=== PATIENT | female | born 1960 | race Caucasian/White ===

== ENCOUNTER 2019-07-12 09:16 | Observation (INO) | payer MEDICAID, SELFPAY ==
[2019-07-11 09:45] VITALS: BMI 34.8
[2019-07-11 10:10] LABS: Add Urine Microscopic? NO
[2019-07-11 10:16] LABS: Basophils % 0.6 %; Eosinophils # 0.1 10^3/uL (0.0-0.8); Hematocrit 39.2 % (37.0-47.0); Hemoglobin 13.2 g/dL (11.5-15.3); Lymphocytes % 28.4 %; Mean Corpuscular HGB Conc 33.7 g/dL (30.0-36.0); Mean Corpuscular Hemoglobin 30.6 pg (28.0-34.0); Mean Platelet Volume 10.7 fL (7.4-10.4); Monocytes # 0.5 10^3/uL (0.2-0.9); Monocytes % 7.3 %; Neutrophils # 4.4 10^3/uL (1.8-7.7); Neutrophils % 61.4 %; Nucleated Red Blood Cells % 0 %; Platelet Count 247 10^3/cmm (130-400); Red Blood Count 4.31 10^6/uL (4.1-5.3); Red Cell Distribution Width 12.4 % (12.1-15.1); White Blood Count 7.1 10^3/uL (4.0-10.0)
[2019-07-11 10:33] LABS: Bilirubin Urine Neg (NEGATIVE); Blood Urine Neg (Negative); Glucose Urine UA Norm (Normal); Ketones Urine Negative (Negative); Leukocyte Esterase Urine Negative (Negative); Nitrate Urine Negative (Negative); Protein Urine Neg (Negative); Specific Gravity, Urine 1.015 (1.005-1.030); Urine Appearance Clear (CLEAR); Urine Color Yellow (Yellow); Urobilinogen Urine Norm (Negative)
[2019-07-11 10:37] LABS: Alanine Aminotransferase 7 U/L (0-33); Albumin Level 4.1 g/dL (3.5-5.2); Alkaline Phosphatase 123 IU/L (35-105); Anion Gap 13.3 (5-19); Aspartate Amino Transferase 13 U/L (0-32); Blood Urea Nitrogen 10 mg/dL (8-23); Calcium 9.4 mg/Dl (8.8-10.2); Carbon Dioxide 29 mmol/L (22-29); Chloride 97 mmol/L (98-107); Globulin 2.8 g/dL (1.3-4.6); Glomerular Filtration Rate 73.2 mL/min (90-130); Glucose 129 mg/dL (74-106); Potassium 4.3 mmol/L (3.5-5.1); Sodium 135 mmol/L (136-145); Total Bilirubin 0.2 mg/dL (0.15-1.2); Total Protein 6.9 g/dL (6.6-8.7)
[2019-07-12] VITALS (14 sets, daily range): BP systolic 112–148; BP diastolic 67–95; PULSE 56–89; RESP 14–18; TEMP 36.3–36.7; O2SAT 93–100; BMI 34.8
[2019-07-12] MEDS: sodium chloride 0.9% 1,000 ML 30 ML IV (06:24)
--- NOTE | 2019-07-12 06:50 | ANES.PREANES ---
Pre-Anesthetic Assessment Pre-Anesthetic Assessment: Height/Weight: Height 1.68 m Weight 97.976 kg Temp Pulse Resp BP Pulse Ox 97.3 F L 65 18 140/89 98 07/12/19 06:18 07/12/19 06:18 07/12/19 06:18 07/12/19 06:18 07/12/19 06:18 Proposed Procedure: Operation Date: 07/12/19 07:05 Proposed Procedures p Anterior Repair Anterior Colporrhaphy w/ Sacrospinous Ligament Suspension(Not Applicable) - Derrell Oleary MD Familial anesthetic complications: PONV Was Beta Jorge taken within 24 hours: Yes Last intake: Intake Last Liquid Date 07/11/19 Last Liquid Time 21:00 Last Solid Date 07/11/19 Last Solid Time 21:00 Social: Social History: Tobacco and No alcohol Packs per day: 0.5 ppd Exam: Pre-Anes Outpt Exam: alert, oriented x 3, clear to auscultation bilaterally and regular rate & rhythm Airway: Submandibular: WNL Cervical ROM: WNL Dentition: Full Pulmonary: Pulmonary: None reported CV/HEM: CV/HEM: Afib and HTN Comments: Mitral valve d/o : : None reported Hepatic: Hepatic: None reported GI: GI: GERD Metabolic: Metabolic: Morbid obesity Musc/skel: Musc/skel: Lower Back Pain Comments: back surgery 1.5 years ago - still painful Neuropsych: Neuropsych: None reported Anesthetic Plan: ASA status: III Anesthesia: General Risk of > 500 ml blood loss (7ml/kg in children): No Meds/Allergies Current Medications: Current Medications Generic Name Dose Route Start Last Admin Trade Name Freq PRN Reason Stop Dose Admin Sodium Chloride 1,000 mls @ 30 ml s/hr 07/12/19 05:45 07/12/19 06:24 Sodium Chloride 0.9% IV 07/13/19 05:44 30 mls/hr .Q24H BOUCHRA Administration PFSH Anesthesia PFSH: Medical History (Updated 07/11/19 @ 09:38 by Hanane Askew RN) Cystocele with small rectocele and uterine descent (Acute) Menopausal state (Acute) Surgical History (Updated 07/10/19 @ 08:34 by Lorraine Modi RN) History of laminectomy (Acute) 11/22/2017 L3- L4, L4-L5 laminectomy/fusion/fixation performed by Dr. Horton History of tubal ligation (Acute) 1985 History of vaginal hysterectomy (Acute) 03/25/2017 with bladder sling performed by Dr. Oleary Hx of tonsillectomy (Acute) Family History (Updated 06/09/19 @ 14:04 by JANIS Atkins) Mother Thyroid disorder Father Thyroid disorder Grandfather Cancer Colon Social History Smoking and tobacco status: current every day smoker cigarettes Packs smoked per day: 0.5 Years cigarettes smoked: 8 Alcohol intake: never Lives independently: Yes Household members: significant other Marital status: Single Number of children: 3 History of recent travel: No Female Reproductive History: Para: 3 Spontaneous abortions: Yes (2) Data Anesthesia Labs: Other Labs: Laboratory Results - last 48 hr 07/11/19 07/11/19 07/11/19 09:50 09:50 09:50 WBC 7.1 RBC 4.31 Hgb 13.2 Hct 39.2 MCV 91.0 MCH 30.6 MCHC 33.7 RDW 12.4 Plt Count 247 MPV 10.7 H Neut % (Auto) 61.4 Lymph % (Auto) 28.4 [place] % (Auto) 7.3 Eos % (Auto) 2.0 Baso % (Auto) 0.6 Neut # (Auto) 4.4 Lymph # (Auto) 2.0 [place] # (Auto) 0.5 Eos # (Auto) 0.1 Baso # (Auto) 0.0 Nucleated RBC % (a uto) 0 Nucleated RBCs # 0.0 Sodium Potassium Chloride Carbon Dioxide Anion Gap BUN Creatinine GFR Calculation Glucose Calcium Total Bilirubin AST ALT Alkaline Phosphata se Total Protein Albumin Globulin Urine Color Yellow Urine Appearance Clear Urine pH 5.0 Ur Specific Gravit y 1.015 Urine Protein Neg Urine Glucose (UA) Norm Urine Ketones Negative Urine Occult Blood Neg Urine Nitrate Negative Urine Bilirubin Neg Urine Urobilinogen Norm Ur Leukocyte Ivonne ase Negative Blood Type O Positive Antibody Screen Negative 07/11/19 09:50 WBC RBC Hgb Hct MCV MCH MCHC RDW Plt Count MPV Neut % (Auto) Lymph % (Auto) [place] % (Auto) Eos % (Auto) Baso % (Auto) Neut # (Auto) Lymph # (Auto) [place] # (Auto) Eos # (Auto) Baso # (Auto) Nucleated RBC % (a uto) Nucleated RBCs # Sodium 135 L Potassium 4.3 Chloride 97 L Carbon Dioxide 29 Anion Gap 13.3 BUN 10 Creatinine 0.8 GFR Calculation 73.2 L Glucose 129 H Calcium 9.4 Total Bilirubin 0.2 AST 13 ALT 7 Alkaline Phosphata se 123 H Total Protein 6.9 Albumin 4.1 Globulin 2.8 Urine Color Urine Appearance Urine pH Ur Specific Gravit y Urine Protein Urine Glucose (UA) Urine Ketones Urine Occult Blood Urine Nitrate Urine Bilirubin Urine Urobilinogen Ur Leukocyte Ivonne ase Blood Type Antibody Screen Cardiac Studies: No Data to Display
[2019-07-12] MEDS: scopolamine 1.5 Patch 1 PATCH TRANSDERMA (07:22)
[2019-07-12] MEDS: metoprolol succinate ER (24 HR) 50 mg Tablet PO (07:22)
--- NOTE | 2019-07-12 07:31 | PM.HPUD ---
H&P update H&P Update: DATE OF SURGERY/PROCEDURE: 07/12/19 DATE H&P PERFORMED: 07/10/19 H&P UPDATE INFORMATION: H&P completed within last 30 days, No changes to prior documentation and [place] [facility] [place] indicated PREOP DIAGNOSIS: Vaginal prolapse PLANNED PROCEDURE: Operation Date: 07/12/19 07:05 Proposed Procedures p Anterior Repair Anterior Colporrhaphy w/ Sacrospinous Ligament Suspension(Not Applicable) - Derrell Oleary MD Full H&P Medications/Allergies: Current Medications: Current Medications Generic Name Dose Route Start Last Admin Trade Name Freq PRN Reason Stop Dose Admin Sodium Chloride 1,000 mls @ 30 ml s/hr 07/12/19 05:45 07/12/19 06:24 Sodium Chloride 0.9% IV 07/13/19 05:44 30 mls/hr .Q24H BOUCHRA Administration Perinent History: Medical/Surgical History: Medical History (Updated 07/10/19 @ 10:11 by Derrell Oleary MD) Cystocele with small rectocele and uterine descent (Acute) Menopausal state (Acute) Family History: Family History (Updated 06/09/19 @ 14:04 by JANIS Atkins) Mother Thyroid disorder Father Thyroid disorder Grandfather Cancer Colon Social History: Social History Smoking and tobacco status: current every day smoker cigarettes Packs smoked per day: 0.5 Years cigarettes smoked: 8 Alcohol intake: never Lives independently: Yes Household members: significant other Marital status: Single Number of children: 3 History of recent travel: No
[2019-07-12] MEDS: estrogens Conjugated Cream 30 gm 1 APPLIC VAGINAL (07:58)
--- NOTE | 2019-07-12 09:05 | PM.OP ---
Operative Report Post-Operative Note: Date of procedure: 07/12/19 Preop Diagnosis: Vaginal prolapse stage III Post-op Findings: Cystocele stage III Procedure Done: Anterior colporrhaphy with bilateral sacrospinous ligament suspension Specimens removed/disposition: None Estimated blood loss (mL): 50 IV fluids (mL): 300 Urine output (mL): 100 Complications: Complications none Condition: stable Disposition: PACU Operative Report: Brief History: 59-year-old female post hysterectomy with anterior colporrhaphy, carries a cystocele stage III with apex descent Procedure: Anterior colporrhaphy w Metristem After obtaining informed consent, the patient was taken to the operating room and placed in the supine position, given general anesthesia, and prepped and draped in sterile fashion. The abdomen, vulva and vagina were prepped and draped in a sterile manner. A time out procedure was performed. The vaginal mucosa was then injected in the midline with normal saline. The vaginal mucosa was scored in the midline with the Bovie approximately 1 cm medial to the urethral meatus to 1 cm distal to the vaginal cuff. This vaginal mucosa was then undermined and then incised in the midline with the Metzenbaum scissors. The lateral aspects of the vaginal mucosa were then grasped with the Allis clamps and the vaginal mucosa was then dissected off the underlying fascia with the Metzenbaum scissors. Again, there was noted to be quite a bit of oozing at the incision, which was controlled with cautery. After adequate dissection was performed, bilaterally. An allograft matrix is modified at time of application to fit spacea, 4 x 3 cm piece . The allograft placed in front of cystocele ready to be implanted with the Basement Membrane facing the vagina mucosa. Suture is placed at distal end of graft and placed towards vaginal cuff. Final suture is placed on proximal portion of the graft to complete the placement overlying the bladder. Then Interrupted vertical mattress sutures of 0 Vicryl were used to elevate the cystocele superiorly. The excessive vaginal mucosa was then trimmed with the Metzenbaum scissors and the vaginal mucosa was then reapproximated in the running interlocking fashion with 2-0 Vicryl. The posterior vaginal mucosa is opened in the routine fashion. A finger is inserted through the incision in the posterior vaginal mucosa, dissecting out the rectovaginal space (RVS). The right rectal pillar (RRP) is identified. The rectal pillar can be bluntly perforated either with the finger or with the tip of a long Maria T clamp. A retractor is used for exposing the rectovaginal space in order to enter the pararectal space with retraction of the cardinal ligament, vagina, and rectum. Displacing the rectum to the left and the cardinal ligament and ureter anteriorly. A sponge dissector is used to bluntly dissect the sacrospinous ligament removing areolar tissue. The ischial spine was palpated directly, and a area approximately 2 cm medial to the spine was selected for insertion of the Anchorsure transvaginal sacrospinous fixation system. One end of the suture of Anchoresure system inserted through the sacrospinous ligament is placed through the muscular layer of the vagina. In a similar manner, the second suture is placed. The opposite end of the suture in the sacrospinous ligament is left free and held on a small hemostat. Then traction on this suture will draw the vaginal vault directly to the ligament, where a square knot affixes it to the sacrospinous ligament. After the fang stich is tied the second safety stich is tied. Then the Tyler catheter was removed and cystoscope was inserted. The bladder was filled with sterile water. Complete evaluation of the bladder mucosa was performed noting no lacerations, dimpling, tears, bleeding of the mucosa or muscular layers. Both ureteral orifices were identified. Prompt excretion of urine from both ureteral orifices was noted. Cystoscope was withdrawn. The Tyler catheter was replaced. Excellent hemostasis was obtained. A vaginal pack is placed overnight as postoperative support for the vaginal tissues after graft placement and closure of vaginal incisions. Sponge, lap, needle, and instrument counts were correct times three. The patient was taken to the recovery room, awake and in stable condition. Coding Level of Care Code Acute Supervisor [employer] for Yaneth Estes
[2019-07-12] MEDS: fentaNYL 50 mcg/mL INJ 2mL IVP ×2 (09:21→09:26)
--- NOTE | 2019-07-12 09:38 | SUR.PHASEI ---
0913 PT TO PACU SLEEPY WITH GOOD RESP PT AWAKES TO VOICE ABD SOFT WITH RTOHMAN TO DD STATLOCK TO RT THIGH YELLOW URINE NOTED TO TUBING AND BAG 0921 PT MORE ALERT RATES ABD PAIN AT 01/11 SEE PAIN MED GIVEN 0939 PT SLEEPS IF NOT DISTURBED ON RA SATS 975 , SEE EARLIER PAIN MEDS GIVEN
[2019-07-12] MEDS: HYDROcodone-acetaminophen 5-325 mg Tablet PO ×3 (10:09→20:09)
--- NOTE | 2019-07-12 10:10 | SUR.PHASEI ---
1000 PTTO FLOOR UP PER W/C WITH VOLUNTEER, PT MOVES SELF TO BED , ABD SOFT RADHA PAD D/I ROTHMAN PATENT OF SMALL AMT YELLOW URINE. BP 140/86, HR 57, RESP 16, SATS 100% ON RA
[2019-07-12] MEDS: dextrose 5%-lactated ringers 1,000 ML 125 ML IV ×2 (10:11→18:18)
[2019-07-12] MEDS: hydroCHLOROthiazide 25 mg Tablet PO (11:47)
[2019-07-12] MEDS: ketorolac 30 mg/mL INJ IVP ×3 (11:49→21:33)
[2019-07-12] MEDS: fentaNYL 50 mcg/mL INJ 2mL IV ×2 (12:34→13:48)
--- NOTE | 2019-07-12 13:26 | PM.PACU ---
PACU note Post-Anesthesia Exam: awake and vital signs stable Disposition: back to floor
[2019-07-12] MEDS: gabapentin 300 mg Capsule 600 MG PO ×2 (15:37→21:33)
[2019-07-12] MEDS: ferrous sulfate EC 325 mg Tablet PO (17:16)
[2019-07-12] MEDS: docusate sodium 100 mg Capsule PO (17:16)
[2019-07-12] MEDS: methocarbamol 500 mg Tablet PO (17:28)
[2019-07-12] MEDS: cyclobenzaprine 10 mg Tablet PO (21:55)
[2019-07-13] MEDS: dextrose 5%-lactated ringers 1,000 ML 125 ML IV (02:25)
[2019-07-13 04:00] VITALS: BP 100/64; PULSE 69; RESP 18; TEMP 36.8; O2SAT 95
[2019-07-13] MEDS: ketorolac 30 mg/mL INJ IVP (04:26)
[2019-07-13] MEDS: HYDROcodone-acetaminophen 5-325 mg Tablet PO ×2 (04:58→09:36)
[2019-07-13] MEDS: metoprolol succinate ER (24 HR) 50 mg Tablet PO (07:57)
[2019-07-13] MEDS: ferrous sulfate EC 325 mg Tablet PO (08:01)
[2019-07-13] MEDS: pantoprazole DR 40 mg Tablet PO (08:02)
[2019-07-13] MEDS: docusate sodium 100 mg Capsule PO (08:02)
[2019-07-13] MEDS: hydroCHLOROthiazide 25 mg Tablet PO (08:02)
[2019-07-13] MEDS: gabapentin 300 mg Capsule 600 MG PO (08:02)
[2019-07-13] MEDS: multivitamin therapeutic Tablet 1 TAB PO (08:04)
[2019-07-13] MEDS: cetirizine 10 mg Tablet PO (08:06)
[2019-07-13 08:49] LABS: Basophils % 0.2 %; Hematocrit 33.4 % (37.0-47.0); Hemoglobin 11.1 g/dL (11.5-15.3); Lymphocytes # 1.1 10^3/uL (0.8-4.8); Lymphocytes % 10.4 %; Mean Corpuscular HGB Conc 33.2 g/dL (30.0-36.0); Mean Corpuscular Hemoglobin 30.5 pg (28.0-34.0); Mean Corpuscular Volume 91.8 fL (81-99); Mean Platelet Volume 11.7 fL (7.4-10.4); Monocytes # 0.4 10^3/uL (0.2-0.9); Monocytes % 3.7 %; Neutrophils # 9.1 10^3/uL (1.8-7.7); Neutrophils % 85.5 %; Nucleated Red Blood Cells % 0 %; Platelet Count 194 10^3/cmm (130-400); Red Blood Count 3.64 10^6/uL (4.1-5.3); Red Cell Distribution Width 12.4 % (12.1-15.1); White Blood Count 10.6 10^3/uL (4.0-10.0)
--- NOTE | 2019-07-13 09:29 | P.DS_ITS ---
Discharge Providers ARCHITECTURAL PRACTICE MANAGER Date of Admission: 07/12/19 09:16 Date of Discharge: 07/13/19 Attending Provider at Admission: Derrell Oleary Attending Provider at Discharge: Derrell Oleary Primary Care Provider: Derrell Oleary Diagnoses at Discharge Discharge Diagnosis (1) Pelvic organ prolapse quantification stage 3 cystocele: Status: Acute Reason for Visit Reason for Visit: Reason For Visit: Vaginal prolapse ?? Hospital Course Hospital Course: Patient was admitted for planned anterior colporrhaphy and bilateral sacrospinous ligament suspension. The procedures were performed without complications. She is ambulating without difficulty. Tolerating diet well.. She is afebrile and hemodynamically stable. Physical Exam Const: COMMON NORMALS: oriented x3, alert and well nourished GENERAL APPEARANCE: comfortable, well kempt and other (Normal Posture) Resp: COMMON NORMALS: clear to auscultation bilaterally EFFORT & INSPECTION: Yes able to speak in complete sentences AUSCULTATION: clear to auscultation bilaterally Cardio: COMMON NORMALS: regular rate, regular rhythm, S1 normal heart sound and S2 normal heart sound RATE: regular rate RHYTHM: regular rhythm HEART SOUNDS: S1 normal, S2 normal and no murmurs GI: COMMON NORMALS: soft to palpation and non-tender PALPATION: Yes soft, No rebound tenderness present and Yes other (No distention, no rigidity ) : EXTERNAL FEMALE EXAM: Yes normal appearance of the urethra SPECULUM EXAM - VAGINA: Yes vaginal lesion other (scar (Vaginal cuff healing well, no signs of infecion), No vaginal bleeding and Yes other (Vaginal wall- good support) SPECULUM EXAM - CERVIX: Yes cervix absent BIMANUAL EXAM - VAGINA & UTERUS: Yes uterus absent BIMANUAL EXAM - ADNEXA, OTHER: Yes normal adnexae OB/EXTERNAL & SPECULUM: No vaginal bleeding Neuro: COMMON NORMALS: oriented x3 SENSORIUM/ORIENTATION: Yes alert Psych: APPEARANCE: Yes well kempt Urinary Catheter Management^: F: Cath Placed During This Visit: no Discharge Data Data Completed and Pending: Laboratory Tests 07/11/19 09:50 WBC 7.1 RBC 4.31 Hgb 13.2 Hct 39.2 MCV 91.0 MCH 30.6 MCHC 33.7 RDW 12.4 Plt Count 247 MPV 10.7 H Neut % (Auto) 61.4 Lymph % (Auto) 28.4 [place] % (Auto) 7.3 Eos % (Auto) 2.0 Baso % (Auto) 0.6 Neut # (Auto) 4.4 Lymph # (Auto) 2.0 [place] # (Auto) 0.5 Eos # (Auto) 0.1 Baso # (Auto) 0.0 Nucleated RBC % (a uto) 0 Nucleated RBCs # 0.0 Labs from last 24 hours 07/13/19 08:11 WBC 10.6 H RBC 3.64 L Hgb 11.1 L Hct 33.4 L MCV 91.8 MCH 30.5 MCHC 33.2 RDW 12.4 Plt Count 194 MPV 11.7 H Neut % (Auto) 85.5 Lymph % (Auto) 10.4 [place] % (Auto) 3.7 Eos % (Auto) 0.0 Baso % (Auto) 0.2 Neut # (Auto) 9.1 H Lymph # (Auto) 1.1 [place] # (Auto) 0.4 Eos # (Auto) 0.0 Baso # (Auto) 0.0 Nucleated RBC % (a uto) 0 Nucleated RBCs # 0.0 Procedures Performed: Anterior colporrhaphy with bilateral sacrospinous ligament suspension. Vitals: Last Vital Signs Temp 98.2 F 07/13/19 04:00 Pulse 69 07/13/19 04:00 Resp 18 07/13/19 04:00 BP 100/64 07/13/19 04:00 Pulse Ox 95 07/13/19 04:00 Discharge Plan Discharge Patient Disposition: Home, Self-Care Condition: Stable Prescriptions: Continued cyclobenzaprine 10 mg tablet 10 mg PO TID PRN (Reason: Pain) RF: 0 meloxicam [Mobic] 15 mg tablet 15 mg PO ONCE RF: 0 hydrocodone-acetaminophen 10-325 mg tablet 1 tab PO Q4H PRN (Reason: pain) RF: 0 gabapentin 600 mg tablet 600 mg PO TID RF: 0 tramadol 50 mg tablet 50 mg PO Q6H PRN (Reason: Pain) RF: 0 hydrochlorothiazide 25 mg tablet 25 mg PO ONCE RF: 0 metoprolol succinate 50 mg tablet extended release 24 hr 50 mg PO DAILY RF: 0 aspirin [Adult Low Dose Aspirin] 81 mg tablet,delayed release (DR/EC) 81 mg PO ONCE RF: 0 pseudoephedrine HCl 30 mg tablet 30 mg PO ONCE PRN (Reason: Allergy Symptoms) RF: 0 MegaRed [place]-3 Krill Oil [phone] mg capsule 1 cap PO ONCE RF: 0 omeprazole 20 mg capsule,delayed release(DR/EC) 20 mg PO ONCE PRN (Reason: gerd) RF: 0 multivitamin Tablet 1 tab PO DAILY RF: 0 cetirizine [Zyrtec] 10 mg tablet 10 mg PO ONCE PRN (Reason: allergies) RF: 0 methocarbamol 500 mg tablet 500 mg PO TID PRN (Reason: Pain) RF: 0 Premarin 0.625 mg tablet 0.625 mg PO DAILY RF: 0 Discharge Orders: Discharge Order (Routine); Ordered 07/13/19 Ordered By: Derrell Oleary Discharge Diet: Regular Discharge Activity: Increase activity as tolerated Patient Instructions: Anterior Vaginal Repair (DC) Activity Restrictions/Additional Instructions: Pelvic rest for 6 weeks. Return to the emergency room if any fever, increased bleeding or pain. Discharge Attestations ARCHITECTURAL PRACTICE MANAGER Time Spent in Discharge Care*: greater than 30 min Specific Discharge Activities: Specific discharge activities: educating patient Coding Level of Care Code Acute Assessment Counselor for Yaneth Fwwaldo Diagnoses Pelvic organ prolapse quantification stage 3 cystocele N81.10
[2019-07-13] MEDS: cyclobenzaprine 10 mg Tablet PO (09:38)
[2019-07-13 10:00] VITALS: BP 137/86; PULSE 62; RESP 16; TEMP 36.5; O2SAT 100
[2019-07-13 10:37] VITALS: BP 137/86; PULSE 62; RESP 16; TEMP 36.5; O2SAT 100
== END 2019-07-13 11:10 | disposition home or self-care (01) ==
LOC: OBGYN 09:17
PROVIDERS: Admitting Provider Obstetrics & Gynecology; PCP Obstetrics & Gynecology; Visit Provider Obstetrics & Gynecology
PROC: 0JQC0ZZ Repair Pelvic Region Subcutaneous Tissue and Fascia, Open Approach (ICD-10-PCS; CPT 57240; principal; 2019-07-12 07:00)
DX: N81.10 Cystocele, unspecified (principal); Z79.82 Long term (current) use of aspirin; Z79.891 Long term (current) use of opiate analgesic; F17.210 Nicotine dependence, cigarettes, uncomplicated; E66.01 Morbid (severe) obesity due to excess calories; Z68.34 Body mass index [BMI] 34.0-34.9, adult
CPT/HCPCS: 57240; 57267; 57282; 80053; 81003; 85025; 86850; 86900; 96360; 96361; 96375; C1762; G0378; J0131; J0690; J1100; J1885; J2001; J2250; J2405; J2704; J2710; J2765; J3010; J3490; J7030

== ENCOUNTER → 2019-08-04 10:29 | Outpatient (BNVA) | payer MEDICAID, SELFPAY | PROVIDERS: PCP Family Medicine; Visit Provider Nurse Practitioner | DX: M43.16 Spondylolisthesis, lumbar region (principal); F17.210 Nicotine dependence, cigarettes, uncomplicated; Z79.891 Long term (current) use of opiate analgesic | CPT/HCPCS: 99214 ==

== ENCOUNTER 2019-09-22 08:58 | Outpatient (CLI) | payer MEDICAID, SELFPAY ==
--- NOTE | 2019-09-22 09:03 | XR_ITS ---
WS: [id number] AP pelvis, AP and frog-leg views of both hips, 09/22/2019 Clinical Data: hip pain Comparison: Right hip, 04/26/2017., Left hip, 11/13/2016. Findings: The SI joints and pubic symphysis are normal. The hips show no fracture, narrowing, sclerosis or cyst formation. The patient's had bilateral pedicle screws inserted into the L5 vertebral body. The soft tissues are normal. XR/XR hip BI m 5V wo/w pel* [id number] Impression: Negative pelvis and both hips.
--- NOTE | 2019-09-22 09:03 | IR_ITS ---
WS: [id number] Lumbar myelogram, 09/22/2019 Clinical Data: lumbar pain Comparison: Lumbar spine, 12/07/2017 Fluoroscopy time: 1.0 minutes. Findings: With the usual technique, a 22 gauge spinal needle was inserted into the lumbar subarachnoid space at L2-L3. The contrast material was hand injected. Approximately 15 mL of 240 mg/mL Omnipaque filled the lumbar subarachnoid space. The patient has had a posterior lumbar fusion of the L3, L4 and L5 vertebral bod ies with bilateral pedicle screws connected with rods. There is also a transverse band between the co nnecting rods at the L3 level. A bony fusion of the transverse processes has been performed. The 0.5 cm subluxation of L4 on L5 has not changed. No intramedullary or intradural defects are seen. There i s a slight bilateral extradural defect at L4-L5. The patient was placed in a headdown position and th e contrast material flowed normally into the lower thoracic subarachnoid space. Flexion, extension and neutral lateral views demonstrated no limitations of motion or increase in sub luxation. The posterior lumbar fusion at L3-L5 remains intact. IR/IR myelogram sp lumbar [id number] Impression: 1. Intact posterior lumbar fusion, unchanged, from L3 through L5. 2. Negative for intradural or intramedullary defect. 3. Small bilateral extradural defects at L4-L5.
--- NOTE | 2019-09-22 09:03 | CT_ITS ---
WS: [id number] CT of the lumbar spine, additional two-dimensional coronal and sagittal imaging was obtained. 09/22/19 Clinical Data: lumbar pain Comparison: CT lumbar spine, 05/10/2019. DLP: 1937.[address] scans at [facility] use at least one of these dose optimization techniques: automat ed exposure control; mA and/or kV adjustment per patient size (includes targeted exams where dose is matched to clinical indication); or iterative reconstruction. Findings: The post myelographic study shows that the pedicle screws remain in the same position as wa s noted on the earlier study. There is lucency at the tips of the L5 pedicle screws. However the luce ncies remain the same size. The pedicle screws are intact with connecting rods between the screws fro m L3 through L5. There is a transverse band connecting the rods at the L3 level. Laminectomy has been performed at L3 and L4. A bony fusion between the L3 and L5 transverse processes bilaterally at sanjay ins intact. No compression fractures are seen. There is degenerative disc disease at L4-L5. There is a 0.5 cm subluxation of L4 on L5 unchanged. Facet joint arthritis is seen at multiple levels from L2- L3 to L4-L5. No intramedullary or intradural defects are seen. T12-L1: No canal stenosis, disc bulge or foraminal narrowing is seen. L1-L2: No canal stenosis, disc bulge or foraminal narrowing is seen. L2-L3: There is a central and right paracentral disc bulge causing right foraminal stenosis. L3-L4: There is a central disc bulge causing bilateral foraminal stenosis. L4-L5: There is a central bulging disc causing bilateral foraminal stenosis. L5-S1: No canal stenosis, disc bulge or foraminal narrowing is seen. CT/CT lumbar spine w con [id number] Impression: 1. Intact posterior lumbar fusion from L3 through L5. 2. Multilevel disc bulging from L2-L3 through L4-L5. 3. No change in subluxation of 0.5 cm of L4 on L5. 4. Degenerative disc disease at L4-L5.
[2019-09-22] MEDS: iohexol 240 mg/mL 50 mL Btl INTRATHECA (10:24)
== END 2019-09-22 08:59 | disposition home or self-care (01) ==
LOC: RADWPI 09:01
PROVIDERS: PCP Family Medicine; Visit Provider Specialist
DX: Z98.1 Arthrodesis status (principal); M54.5 Low back pain; M51.26 Other intervertebral disc displacement, lumbar region; M47.896 Other spondylosis, lumbar region
CPT/HCPCS: 62304; 72120; 72132; 73523

== ENCOUNTER → 2019-09-29 11:01 | Outpatient (BNVA) | payer MEDICAID, SELFPAY | PROVIDERS: PCP Family Medicine; Visit Provider Anesthesiology | DX: M43.16 Spondylolisthesis, lumbar region (principal); F17.210 Nicotine dependence, cigarettes, uncomplicated; Z98.890 Other specified postprocedural states; Z98.1 Arthrodesis status; Z79.891 Long term (current) use of opiate analgesic; Z71.6 Tobacco abuse counseling | CPT/HCPCS: 99214 ==

== ENCOUNTER → 2020-01-17 09:38 | Outpatient (BNVA) | payer MEDICAID, SELFPAY | PROVIDERS: PCP Family Medicine; Visit Provider Nurse Practitioner | DX: M54.41 Lumbago with sciatica, right side (principal); M54.42 Lumbago with sciatica, left side; M43.16 Spondylolisthesis, lumbar region; M54.9 Dorsalgia, unspecified; F17.210 Nicotine dependence, cigarettes, uncomplicated; Z79.891 Long term (current) use of opiate analgesic; Z71.6 Tobacco abuse counseling | CPT/HCPCS: 99214 ==

== ENCOUNTER → 2020-03-15 09:39 | Outpatient (BNVA) | payer MEDICAID, SELFPAY | PROVIDERS: PCP Family Medicine; Visit Provider Nurse Practitioner | DX: M54.42 Lumbago with sciatica, left side (principal); M54.41 Lumbago with sciatica, right side; M43.16 Spondylolisthesis, lumbar region; M54.9 Dorsalgia, unspecified; F17.210 Nicotine dependence, cigarettes, uncomplicated; Z71.6 Tobacco abuse counseling; Z98.890 Other specified postprocedural states; Z79.891 Long term (current) use of opiate analgesic | CPT/HCPCS: 99214 ==

== ENCOUNTER 2020-05-05 17:02 | Emergency (ER) | payer MEDICAID, SELFPAY ==
[2020-05-05 17:10] VITALS: BP 111/79; PULSE 147; RESP 14; TEMP 36.3; O2SAT 98; BMI 34.7
[2020-05-05] MEDS: adenosine 3 mg/mL SDV 2mL 6 MG IVP (17:30)
--- NOTE | 2020-05-05 17:43 | W.ED.ARRPALP ---
HPI - Arrhythmia/Palpitations General: Chief Complaint: Arrhythmia/Palpitations Stated Complaint: HEART OUT OF RHYTHM Time Seen by Provider: 05/05/20 17:18 History of Present Illness: HPI narrative: This patient is a 60-year-old female comes in today with a rapid heart rate. She said it started while she was sleeping and was present on awakening this morning. She is been trying all day to get it to stop. She has a history of SVT and knows the various maneuvers to try at home. These have not worked. She also has metoprolol at home and she is taken 300 mg of it throughout the day to try to get it to stop. She feels a little short of breath with exertion but denies chest pain. She is not lightheaded. She comes in hoping that we can just convert her back to normal rhythm. She does not want to have a big work-up. She said she has never had positive troponins and she is never had any cardiac history other than the SVT. She sees Dr. Sinha. RODRÍGUEZ complaint: rapid heart beat Onset (ago): hour(s) Duration: constant Severity: moderate Context: occurred during rest Arrhythmia history: SVT Associated symptoms: Reports short of breath; Deny nausea or vomiting Treatments prior to arrival: vagal maneuvers and beta-aj Review of Systems General: Reports: 10 or more systems reviewed and unremarkable except in HPI and below Const: Denies: fever(s), chills, fatigue or malaise Eyes: Denies: change in vision ENMT: Denies: odynophagia Card: Denies: chest pain or swelling of feet/ankles Resp: Denies: dyspnea, productive cough or non-productive cough GI: Denies: abdominal pain, nausea or vomiting : Denies: flank pain or difficulty voiding Musc: Denies: neck pain or back pain Skin/Breast: Denies: rash Neuro: Denies: headache(s), numbness in extremities or weakness in extremities Alexis/Lymph: Denies: easy bruising or easy bleeding PFS ED PFSH: Medical History Cystocele with small rectocele and uterine descent Encounter for long-term opiate analgesic use Hypertension Menopausal state Mitral valve prolapse Opioid contract exists Smoker Spondylolisthesis, lumbar region Surgical History H/O vaginal surgery anterior colporrhaphy with bilateral sacrospinous ligament suspension- performed on 07/12/[address] Oleary History of cataract extraction 04/2019- right eye 06/2019- left eye History of laminectomy 11/22/2017 L3- L4, L4-L5 laminectomy/fusion/fixation performed by Dr. Horton History of lumbar fusion History of tubal ligation 1985 History of vaginal hysterectomy 03/25/2017 with bladder sling performed by Dr. Oleary Hx of bladder repair surgery Dr. Oleary 07/2019 Hx of tonsillectomy Family History Mother Thyroid disorder Father Thyroid disorder Grandfather Cancer Colon Social History (Updated 05/06/20 @ 09:36 by Yazmin Villasenor LPN) Smoking and tobacco status: current every day smoker cigarettes Packs smoked per day: 0.5 Alcohol intake: never Substance/Drug Use: never Lives independently: Yes Household members: significant other Marital status: Single Number of children: 3 Current occupation: disabled History of recent travel: No Female Reproductive History: Para: 3 Spontaneous abortions: Yes (2) Physical Exam Const: COMMON NORMALS: no acute distress, patient oriented x3, no limitations and alert GENERAL APPEARANCE: cooperative and comfortable HENMT: HEAD & SCALP: normal to inspection FACE & SINUS: normal facial exam Eye: GENERAL EYE: appearance normal, both eyes and all related structures Neck/C-Spine: COMMON NORMALS: supple, no meningeal signs and no JVD Chest: COMMONS NORMALS: normal inspection of the chest Resp: COMMON NORMALS: normal respiratory effort, No use of accessory muscles and clear to auscultation bilaterally AUSCULTATION: clear to auscultation bilaterally Cardio: COMMON NORMALS: no JVD, regular rhythm and No murmurs present (Cardio) RATE: tachycardic (150) RHYTHM: regular rhythm GI: COMMON NORMALS: Normal to inspection, nondistended, normoactive bowel sounds present, Soft to palpation and non-tender INSPECTION: Yes normal to inspection AUSCULTATION: Yes normoactive bowel sounds PALPATION: Yes Soft to palpation Back/Pelvis: COMMON NORMALS: thoracic and lumbar spine normal to inspection Extremity: COMMON NORMALS: normal to inspection Neuro: COMMON NORMALS: patient oriented x3, moves all extremities, no focal motor deficits and no sensory deficits noted SENSORIUM/ORIENTATION: Yes alert MENINGEAL SIGNS: Yes no meningeal signs Psych: COMMON NORMALS: mental status grossly normal, cooperative and normal affect Skin: COMMON NORMALS: no rashes or lesions noted and turgor normal GENERAL SKIN EXAM: no rashes or lesions noted and turgor normal Course ED course: Patient has had this multiple times and does not wish to have a work-up. I think that is reasonable given her symptoms. We tried adenosine which did slow her down for about 3 PVC type beats. Her heart rate then went right back to 150. Cardizem, slow push of 20 mg IV, converted her back to a sinus rhythm. She is still having some mild irregularity on the monitor. Of asked her to just rest for a while and let us make sure that she stays in a sinus rhythm. Vital Signs: Vital signs: Vital Signs Temperature 97.3 F L 05/05/20 17:10 Pulse Rate 65 05/05/20 19:26 Respiratory Rate 16 05/05/20 19:26 Blood Pressure 93/65 05/05/20 19:26 Pulse Oximetry 95 05/05/20 19:26 Discharge Plan Discharge Patient Disposition: Home Clinical Impression: SVT (supraventricular tachycardia) Condition: Stable Prescriptions: New diltiazem HCl 30 mg tablet 30 mg PO Q6H PRN (Reason: SVT) Qty: 10 RF: 0 No Action metoprolol succinate 50 mg tablet extended release 24 hr 50 mg PO DAILY RF: 0 aspirin [Adult Low Dose Aspirin] 81 mg tablet,delayed release (DR/EC) 81 mg PO ONCE RF: 0 pseudoephedrine HCl 30 mg tablet 30 mg PO ONCE PRN (Reason: Allergy Symptoms) RF: 0 MegaRed [place]-3 Krill Oil [id number] mg capsule 1 cap PO ONCE RF: 0 omeprazole 20 mg capsule,delayed release(DR/EC) 20 mg PO ONCE PRN (Reason: gerd) RF: 0 multivitamin Tablet 1 tab PO DAILY RF: 0 hydrochlorothiazide 25 mg tablet 25 mg PO QDAY RF: 0 methocarbamol 500 mg tablet 500 mg PO .AT BEDTIME PRN (Reason: spasms) 30 Days Qty: 30 RF: 1 meloxicam [Mobic] 15 mg tablet 15 mg PO ONCE Qty: 30 RF: 1 cyclobenzaprine 10 mg tablet 10 mg PO TID PRN (Reason: Pain) Qty: 90 RF: 1 gabapentin 600 mg tablet 600 mg PO TID Qty: 90 RF: 1 hydrocodone-acetaminophen 10-325 mg tablet 1 tab PO .6 times a day PRN (Reason: Pain) 30 Days Qty: 180 RF: 0 hydrocodone-acetaminophen 10-325 mg tablet 1 tab PO .6x day PRN (Reason: pain) 30 Days Qty: 180 RF: 0 tramadol 50 mg tablet 50 mg PO .6 times daily PRN (Reason: Pain) 30 Days Qty: 180 RF: 1 Premarin 0.625 mg tablet 0.625 mg PO DAILY 90 Days Qty: 90 RF: 3 Discharge Orders: Discharge Order (Routine); Ordered 05/05/20 Ordered By: Annie Sam Referrals: Chele Lange, [Primary Care Provider] - Discharge Diet: Usual diet Discharge Activity: Resume usual activity Patient Instructions: Supraventricular Tachycardia (ED) Activity Restrictions/Additional Instructions: Return to the ER if you have further episodes of fast heart rate that will not stop with your maneuvers at home. Follow-up with Dr. Hussein to discuss further management of your symptoms. If you have another episode you can take the diltiazem pill that was prescribed. You can take 1 pill every hour up to a total of 6 to try to get it to stop. Discharge Date/Time: 05/05/20 19:27 Coding Level of Care Code ED Burlap Worker for Yaneth Fwd Exam Comprehensive
--- NOTE | 2020-05-05 17:46 | PC.NURSE ---
See attached ECG strips. See repeat EKG following conversion.
--- NOTE | 2020-05-05 18:29 | ECG_ITS ---
[facility] Test Date: 2020-05-05 Pat Name: Crystal Mejias Department: Room: Gender: Female Fast Food Worker: : 1960 Requested By: Annie Granado Order Number: [id number] Bhupinder MD: ELIJAH PHILLIPS Measurements Intervals [place] Rate: 76 P: -3 IN: 196 QRS: 10 QRSD: 88 T: 25 QT: 371 QTc: 419 Interpretive Statements SINUS RHYTHM Compared to ECG 05/12/2018 17:34:32 No significant changes Electronically Signed On 05-05-2020 19:35:01 TRAVELING CLERK by ELIJAH PHILLIPS [id number]
--- NOTE | 2020-05-05 18:30 | ECG_ITS ---
[facility] Test Date: 2020-05-05 Pat Name: Crsytal Mejias Department: Room: Gender: Female Pool Hand: MARIA A : 1960 Requested By: Annie Granado Order Number: [id number] Reading MD: ELIJAH PHILLIPS Measurements Intervals [place] Rate: 147 P: PA: -1 QRS: -9 QRSD: 98 T: 15 QT: 276 QTc: 432 Interpretive Statements ATRIAL FLUTTER/TACHYCARDIA WITH RAPID VENTRICULAR RESPONSE ABNORMAL RHYTHM ECG Compared to ECG 05/12/2018 17:34:32 Sinus rhythm no longer present Electronically Signed On 05-05-2020 19:35:07 CUSTOM SHOEMAKER by ELIJAH PHILLIPS [id number]
[2020-05-05 19:16] VITALS: BP 93/65; PULSE 67; RESP 18; O2SAT 97
[2020-05-05 19:26] VITALS: BP 93/65; PULSE 65; RESP 16; O2SAT 95
== END 2020-05-05 19:27 | disposition home or self-care (01) ==
PROVIDERS: Emergency Provider Emergency Medicine; PCP Family Medicine
DX: I47.1 Supraventricular tachycardia (principal); Z79.82 Long term (current) use of aspirin; I10 Essential (primary) hypertension; F17.210 Nicotine dependence, cigarettes, uncomplicated
CPT/HCPCS: 12345; 93005; 96374; 96375; 99283; J0153; J3490

== ENCOUNTER → 2020-05-09 09:13 | Outpatient (BNVA) | payer MEDICAID, SELFPAY | PROVIDERS: PCP Family Medicine; Visit Provider Anesthesiology | DX: M43.16 Spondylolisthesis, lumbar region (principal); M48.062 Spinal stenosis, lumbar region with neurogenic claudication; F17.210 Nicotine dependence, cigarettes, uncomplicated; Z98.890 Other specified postprocedural states; Z98.1 Arthrodesis status; Z79.891 Long term (current) use of opiate analgesic; Z71.6 Tobacco abuse counseling | CPT/HCPCS: 99213; 99214 ==

== ENCOUNTER → 2020-06-13 08:52 | Outpatient (BNVA) | payer MEDICAID, SELFPAY | PROVIDERS: PCP Family Medicine; Visit Provider Anesthesiology | DX: G89.29 Other chronic pain (principal); M48.062 Spinal stenosis, lumbar region with neurogenic claudication; M43.16 Spondylolisthesis, lumbar region; F17.210 Nicotine dependence, cigarettes, uncomplicated; Z98.890 Other specified postprocedural states; Z98.1 Arthrodesis status; Z79.891 Long term (current) use of opiate analgesic | CPT/HCPCS: 62323; J1040; J3490 ==

== ENCOUNTER 2020-06-15 16:44 | Emergency (ER) | payer MEDICAID, SELFPAY ==
[2020-06-15 16:51] VITALS: BP 117/96; PULSE 142; RESP 20; TEMP 36.5; O2SAT 99; BMI 34.7
--- NOTE | 2020-06-15 16:58 | PC.NURSE ---
Physician attempted vagal maneuver at this time with failed attempt.
[2020-06-15] MEDS: adenosine 3 mg/mL SDV 2mL 6 MG IVP (17:03)
--- NOTE | 2020-06-15 17:04 | PC.NURSE ---
Patients heart rate converted at this time with 6mg of adenosine.
[2020-06-15 17:10] VITALS: PULSE 84; RESP 18; O2SAT 100
--- NOTE | 2020-06-15 17:10 | ECG_ITS ---
[facility] Test Date: 2020-06-15 Pat Name: Crystal Mejias Department: Room: Gender: Female Strategic Alliances Manager: : 1960 Requested By: Murray Granado Order Number: [id number] Reading MD: ELIJAH PHILLIPS Measurements Intervals [place] Rate: 62 P: 36 [place]: 191 QRS: 29 QRSD: 80 T: 47 QT: 354 QTc: 360 Interpretive Statements SINUS RHYTHM WITH MARKED RHYTHM IRREGULARITY, POSSIBLE NON-CONDUCTED PAC, SA BLOCK, AV BLOCK, OR SINUS PAUSE ABNORMAL RHYTHM ECG WARNING: DATA QUALITY MAY AFFECT INTERPRETATION Compared to ECG 05/05/2020 17:40:39 No significant changes Electronically Signed On 06-15-2020 18:53:51 PRINCIPAL CLERK by ELIJAH PHILLIPS [id number]
--- NOTE | 2020-06-15 17:10 | W.ED.ARRPALP ---
HPI - Arrhythmia/Palpitations General: Chief Complaint: Arrhythmia/Palpitations Stated Complaint: Unusual Heart Rythms Time Seen by Provider: 06/15/20 16:51 History of Present Illness: HPI narrative: 60 yo female presents with SVT. She has had SVT in the past yesterday she had an episode took a Cardizem and it resolved she usually takes Cardizem when she gets the episodes. Says she took 1 try different Valsalva maneuvers without relief of the SVT she has not had any chest pain. This similar to episode she has had in the past. MD complaint: rapid heart beat Onset (ago): hour(s) Duration: constant Severity: severe Context: occurred during rest Arrhythmia history: SVT Associated symptoms: Reports anxiety; Deny cough, diaphoresis, muscle cramps, nausea, paresthesias, pre-syncope, sense of impending doom, short of breath, syncope or vomiting Review of Systems Const: Denies: diaphoresis Card: Denies: syncope or pre-syncope GI: Denies: nausea or vomiting Musc: Denies: muscle cramps Psych: Reports: anxiety PFSH ED PFSH: Medical History Cystocele with small rectocele and uterine descent Encounter for long-term opiate analgesic use Hypertension Menopausal state Mitral valve prolapse Opioid contract exists Smoker Spondylolisthesis, lumbar region Surgical History H/O vaginal surgery anterior colporrhaphy with bilateral sacrospinous ligament suspension- performed on 07/12/[address] Oleary History of cataract extraction 04/2019- right eye 06/2019- left eye History of laminectomy 11/22/2017 L3- L4, L4-L5 laminectomy/fusion/fixation performed by Dr. Horton History of lumbar fusion History of tubal ligation 1985 History of vaginal hysterectomy 03/25/2017 with bladder sling performed by Dr. Oleary Hx of bladder repair surgery Dr. Oleary 07/2019 Hx of tonsillectomy Family History Mother Thyroid disorder Father Thyroid disorder Grandfather Cancer Colon Social History Smoking and tobacco status: current every day smoker cigarettes Packs smoked per day: 0.5 Alcohol intake: never Substance/Drug Use: never Lives independently: Yes Household members: significant other Marital status: Single Number of children: 3 Current occupation: disabled History of recent travel: No Female Reproductive History: Para: 3 Spontaneous abortions: Yes (2) Physical Exam Const: COMMON NORMALS: no acute distress GENERAL APPEARANCE: cooperative and comfortable ORIENTATION/CONSCIOUSNESS: Yes awake, Yes oriented to person, Yes oriented to place and Yes oriented to time HENMT: COMMON NORMALS: normocephalic, atraumatic and hearing grossly normal bilaterally HEAD & SCALP: normocephalic and atraumatic Resp: COMMON NORMALS: normal respiratory effort, No retractions, No use of accessory muscles and clear to auscultation bilaterally AUSCULTATION: clear to auscultation bilaterally Cardio: COMMON NORMALS: No murmurs present (Cardio) RATE: tachycardic RHYTHM: abnormal rhythm (SVT) GI: COMMON NORMALS: Soft to palpation and No hepatosplenomegaly present AUSCULTATION: Yes normoactive bowel sounds PALPATION: Yes Soft to palpation, No Tenderness to palpation present (GI), No Guarding due to palpation present (GI) and Yes No hepatosplenomegaly present Extremity: COMMON NORMALS: normal to inspection, capillary refill normal, no clubbing, cyanosis or edema, no calf tenderness and no pedal edema Neuro: SENSORIUM/ORIENTATION: Yes oriented to person, Yes oriented to place and Yes oriented to time Skin: COMMON NORMALS: no rashes or lesions noted GENERAL SKIN EXAM: no rashes or lesions noted Course Vital Signs: Vital signs: Vital Signs Temperature 97.7 F 06/15/20 16:51 Pulse Rate 79 06/15/20 17:44 Respiratory Rate 18 06/15/20 17:44 Blood Pressure 121/84 06/15/20 17:44 Pulse Oximetry 96 06/15/20 17:44 MDM - Arrhythmia/Palpitations MDM Narrative: Medical decision making narrative: Declined any testing postconversion she. She converted to normal sinus rhythm after the single dose of adenosine. I did try several Valsalva maneuvers and carotid massage and none of which worked we will discharge her home continue her current medications follow-up with Dr. James next week return if has problems Discharge Plan Discharge Patient Disposition: Home Clinical Impression: SVT (supraventricular tachycardia) Condition: Stable Prescriptions: No Action metoprolol succinate 50 mg tablet extended release 24 hr 50 mg PO DAILY RF: 0 aspirin [Adult Low Dose Aspirin] 81 mg tablet,delayed release (DR/EC) 81 mg PO ONCE RF: 0 pseudoephedrine HCl 30 mg tablet 30 mg PO ONCE PRN (Reason: Allergy Symptoms) RF: 0 MegaRed [place]-3 Krill Oil [id number] mg capsule 1 cap PO ONCE RF: 0 omeprazole 20 mg capsule,delayed release(DR/EC) 20 mg PO ONCE PRN (Reason: gerd) RF: 0 multivitamin Tablet 1 tab PO DAILY RF: 0 hydrochlorothiazide 25 mg tablet 25 mg PO QDAY RF: 0 cyclobenzaprine 10 mg tablet 10 mg PO TID PRN (Reason: Pain) Qty: 90 RF: 1 gabapentin 600 mg tablet 600 mg PO TID Qty: 90 RF: 1 hydrocodone-acetaminophen 10-325 mg tablet 1 tab PO .6 times a day PRN (Reason: Pain) 30 Days Qty: 180 RF: 0 hydrocodone-acetaminophen 10-325 mg tablet 1 tab PO .6x day PRN (Reason: pain) 30 Days Qty: 180 RF: 0 meloxicam [Mobic] 15 mg tablet 15 mg PO ONCE Qty: 30 RF: 1 tramadol 50 mg tablet 50 mg PO .6 times daily PRN (Reason: Pain) 30 Days Qty: 180 RF: 1 methocarbamol 500 mg tablet 500 mg PO .AT BEDTIME PRN (Reason: spasms) 30 Days Qty: 30 RF: 1 Premarin 0.625 mg tablet 0.625 mg PO DAILY 90 Days Qty: 90 RF: 3 methylprednisolone acetate [Depo-Medrol] 80 mg/mL suspension 80 mg Infiltration ONCE Qty: 1 RF: 0 sodium chloride 0.9 % Solution 1 ml epidural ONCE Qty: 10 RF: 0 bupivacaine (PF) 0.25 % (2.5 mg/mL) solution 2 ml epidural ONCE Qty: 1 RF: 0 lidocaine (PF) 10 mg/mL (1 %) solution 10 mg SUBCUT ONCE Qty: 1 RF: 0 diltiazem HCl 30 mg tablet 30 mg PO Q6H PRN (Reason: SVT) Qty: 10 RF: 0 Discharge Orders: Discharge ED (Routine); Ordered 06/15/20 Ordered By: Murray Laguerre Referrals: Chele Lange DO [Primary Care Provider] - Activity Restrictions/Additional Instructions: No change in medications follow-up with cardiology early next week. Coding Level of Care Code ED Museum Preparator for Yaneth Estes
[2020-06-15 17:18] VITALS: BP 117/96; PULSE 83; RESP 20; O2SAT 98
[2020-06-15 17:44] VITALS: BP 121/84; PULSE 79; RESP 18; O2SAT 96
== END 2020-06-15 17:48 | disposition home or self-care (01) ==
PROVIDERS: Emergency Provider Family Medicine; PCP Family Medicine
DX: I47.1 Supraventricular tachycardia (principal); Z79.82 Long term (current) use of aspirin; I10 Essential (primary) hypertension; F17.210 Nicotine dependence, cigarettes, uncomplicated
CPT/HCPCS: 12345; 93005; 96374; 96375; 99283; J0153

== ENCOUNTER → 2020-07-19 08:10 | Outpatient (BNVA) | payer MEDICAID, SELFPAY | PROVIDERS: PCP Family Medicine; Visit Provider Anesthesiology | DX: M43.16 Spondylolisthesis, lumbar region (principal); M48.062 Spinal stenosis, lumbar region with neurogenic claudication; F17.210 Nicotine dependence, cigarettes, uncomplicated; Z98.1 Arthrodesis status; Z98.890 Other specified postprocedural states; Z79.891 Long term (current) use of opiate analgesic | CPT/HCPCS: 99213 ==

== ENCOUNTER → 2020-09-13 07:58 | Outpatient (BNVA) | payer MEDICAID, SELFPAY | PROVIDERS: PCP Family Medicine; Visit Provider Anesthesiology | DX: M43.16 Spondylolisthesis, lumbar region (principal); M48.062 Spinal stenosis, lumbar region with neurogenic claudication; F17.210 Nicotine dependence, cigarettes, uncomplicated; Z98.890 Other specified postprocedural states; Z98.1 Arthrodesis status; Z79.891 Long term (current) use of opiate analgesic | CPT/HCPCS: 99213 ==

== ENCOUNTER → 2020-11-06 09:50 | Outpatient (BNVA) | payer MEDICAID, SELFPAY | PROVIDERS: PCP Family Medicine; Visit Provider Nurse Practitioner | DX: M43.16 Spondylolisthesis, lumbar region (principal); M48.062 Spinal stenosis, lumbar region with neurogenic claudication; F17.210 Nicotine dependence, cigarettes, uncomplicated; Z79.891 Long term (current) use of opiate analgesic; Z98.1 Arthrodesis status; Z98.890 Other specified postprocedural states; Z71.6 Tobacco abuse counseling | CPT/HCPCS: 99214 ==

== ENCOUNTER → 2021-01-17 09:29 | Outpatient (BNVA) | payer MEDICARE, MEDICAID, SELFPAY | PROVIDERS: PCP Family Medicine; Visit Provider Nurse Practitioner | DX: M43.16 Spondylolisthesis, lumbar region (principal); M48.062 Spinal stenosis, lumbar region with neurogenic claudication; F17.210 Nicotine dependence, cigarettes, uncomplicated; Z98.1 Arthrodesis status; Z98.890 Other specified postprocedural states; Z71.6 Tobacco abuse counseling; Z79.891 Long term (current) use of opiate analgesic | CPT/HCPCS: 99214; 99406 ==

== ENCOUNTER → 2021-03-12 09:46 | Outpatient (BNVA) | payer MEDICARE, MEDICAID, SELFPAY | PROVIDERS: PCP Family Medicine; Visit Provider Nurse Practitioner | DX: M43.16 Spondylolisthesis, lumbar region (principal); M48.062 Spinal stenosis, lumbar region with neurogenic claudication; F17.210 Nicotine dependence, cigarettes, uncomplicated; Z98.1 Arthrodesis status; Z98.890 Other specified postprocedural states; Z79.891 Long term (current) use of opiate analgesic; Z71.6 Tobacco abuse counseling | CPT/HCPCS: 99214 ==

== ENCOUNTER → 2021-05-16 07:55 | Outpatient (BNVA) | payer MEDICARE, MEDICAID, SELFPAY | PROVIDERS: PCP Family Medicine; Visit Provider Anesthesiology | DX: M43.16 Spondylolisthesis, lumbar region (principal); M48.062 Spinal stenosis, lumbar region with neurogenic claudication; Z98.890 Other specified postprocedural states; Z98.1 Arthrodesis status; F17.210 Nicotine dependence, cigarettes, uncomplicated; Z79.82 Long term (current) use of aspirin; Z79.891 Long term (current) use of opiate analgesic; Z71.6 Tobacco abuse counseling | CPT/HCPCS: 99213; 99214 ==

== ENCOUNTER → 2021-07-17 07:54 | Outpatient (BNVA) | payer MEDICARE, MEDICAID, SELFPAY | PROVIDERS: PCP Family Medicine; Visit Provider Anesthesiology | DX: M43.16 Spondylolisthesis, lumbar region (principal); M48.062 Spinal stenosis, lumbar region with neurogenic claudication; Z98.890 Other specified postprocedural states; Z98.1 Arthrodesis status; F17.200 Nicotine dependence, unspecified, uncomplicated; Z79.891 Long term (current) use of opiate analgesic | CPT/HCPCS: 99213 ==

== ENCOUNTER 2024-05-11 09:52 | Outpatient (CLI) | payer OTHER, SELFPAY ==
--- NOTE | 2024-05-11 10:03 | XR_ITS ---
WS: [id number] XR lumbar spine f/e only [id number] REASON FOR EXAM: POSTLAMINECTOMY SYNDROME FINDINGS: Posterior decompression with bilateral pedicle screws and interconnecting rods L3-L5. There is a 10 m m neutral anterolisthesis of L4 on L5. With flexion there is accentuation of the listhesis 213 to 14 mm with the L4 vertebral body slightly overriding the anterior margin of L5. The listhesis is reduced 4 mm with extension. The L for L5 disc space is somewhat narrowed and there is degenerative gas within the disc space. Thi s abnormality was not present on 12/07/2017. XR/XR lumbar spine f/e only [id number] IMPRESSION: Posterior lumbar fusion with instability at L4-L5 as above.
== END 2024-05-11 09:53 | disposition home or self-care (01) ==
PROVIDERS: PCP Family Medicine
DX: M96.1 Postlaminectomy syndrome, not elsewhere classified (principal); M43.16 Spondylolisthesis, lumbar region; M53.2X6 Spinal instabilities, lumbar region; M43.26 Fusion of spine, lumbar region
CPT/HCPCS: 72120